=== PATIENT | male | born 1950 | race Hispanic/Latino ===

== ENCOUNTER 2018-09-04 06:39 | Outpatient (CLI) | payer MEDICARE ==
--- NOTE | 2018-09-04 08:04 | ULT ---
ULTRASOUND WITH DOPPLER DUPLEX VENOUS LOWER EXTREMITY COMPLETE: CPT: 45190 ICD-10-PCS: B54D INDICATION: Hepatitis C. 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 FINDINGS: There is prominent size of the liver. No discrete hepatic lesion is visualized. Borderline enlargemen t of the spleen, measuring approximately 13.0 cm in length. There is no acute gallbladder pathology o r ascites. Common duct is normal at 4.0 mm. No hydronephrosis involving the kidneys. Pancreas is part ially obscured, which does limit its assessment, due to persistent bowel gas. Evaluation of the abdomen otherwise grossly unremarkable by sonographic assessment. IMPRESSION: 1. No acute intra-abdominal pathology is identified. 2. Borderline hepatosplenomegaly. Correlate clinically. POS: [facility]
== END 2018-09-04 06:40 | disposition home or self-care (01) ==
LOC: BICULT 06:39
PROVIDERS: ATTEND Internal Medicine
DX: B18.2 Chronic viral hepatitis C (principal); R94.5 Abnormal results of liver function studies; D69.59 Other secondary thrombocytopenia; R16.2 Hepatomegaly with splenomegaly, not elsewhere classified
CPT/HCPCS: 76700

== ENCOUNTER 2019-06-13 08:44 | Outpatient (CLI) | payer MEDICARE ==
--- NOTE | 2019-06-13 11:05 | ULT ---
HEPATIC ULTRAOUND WITH ALBERT SCALE AND COLOR FLOW AND SPECTRAL DOPPLER IMAGING: Date: 06/13/19 HISTORY: Chronic hepatitis C. FINDINGS: There is mildly increased echogenicity of the liver without focal mass or intrahepatic ductal dilatat ion. The spleen measures 12.3 cm in length. Appendix normal. No gallstones, gallbladder wall thickeni ng, or pericholecystic fluid seen. Common duct measures 4 mm in diameter. Pancreas normal. No free fl uid seen in the upper abdomen. There is normal flow and spectral waveforms in the hepatic, portal, and splenic vasculature. IMPRESSION: Mild fatty liver. No evidence of hepatic mass or cholelithiasis. POS: [facility]
== END 2019-06-13 08:45 | disposition home or self-care (01) ==
LOC: BICULT 08:44
PROVIDERS: ATTEND Physician Assistant Medical
DX: B18.2 Chronic viral hepatitis C (principal); K76.0 Fatty (change of) liver, not elsewhere classified
CPT/HCPCS: 76705

== ENCOUNTER 2022-09-07 08:37 | Outpatient (CLI) | payer MEDICARE | END 2022-09-07 08:38 | disposition home or self-care (01) | LOC: SCSMRI 08:37 | PROVIDERS: ATTEND Physician Assistant Medical | DX: R79.89 Other specified abnormal findings of blood chemistry (principal); R16.0 Hepatomegaly, not elsewhere classified; R77.2 Abnormality of alphafetoprotein; Z86.19 Personal history of other infectious and parasitic diseases | CPT/HCPCS: 74183 ==

== ENCOUNTER 2023-01-01 21:16 | Inpatient (IN) | payer MEDICARE ==
[2023-01-01 21:29] VITALS: BMI 23.1
[2023-01-01] MEDS ORDERED: Acetaminophen 325 MG TAB PO PRN (21:30)
[2023-01-01] MEDS ORDERED: Ondansetron ODT 4 MG TAB SL PRN (21:30)
[2023-01-01] MEDS ORDERED: Ondansetron PF 4 MG/2 ML Vial IVP PRN (21:30)
[2023-01-02 00:49] LABS: Anion Gap 15 mmol/L (10-20); BUN (Urea Nitrogen) 32 mg/dL (8.4-25.7); Calc. Creatinine Clearance 96 mL/min (70-130); Calcium 8.5 mg/dL (7.8-10.44); Carbon Dioxide 16 mmol/L (23-31); Chloride 92 mmol/L (98-107); Estimated GFR 97; Glucose 92 mg/dL (80-115)
[2023-01-02 00:51] LABS: Sodium 119 mmol/L (136-145)
[2023-01-02] MEDS: Sodium Chloride 3% 100 ML IVPB SCH ×2 (01:57→02:38)
[2023-01-02] MEDS ORDERED: Dextrose 50% Abboject 50 ML SYRINGE SLOW IVP PRN (03:56)
[2023-01-02] MEDS ORDERED: Dextrose 5% in Water 1,000 ML IV PRN (03:56)
[2023-01-02] MEDS ORDERED: HumaLOG 300 UNITS/3 ML VIAL SC PRN ×2 (03:56)
[2023-01-02] MEDS ORDERED: Insulin Glargine 30 UNITS/0.3 ML VIAL SC SCH ×2 (04:15→21:00)
[2023-01-02 04:35] LABS: ALT (SGPT) 31 U/L (8-55); AST (SGOT) 154 U/L (5-34); Albumin 3.4 g/dL (3.4-4.8); Alkaline Phosphatase 134 U/L (40-110); Anion Gap 14 mmol/L (10-20); BUN (Urea Nitrogen) 29 mg/dL (8.4-25.7); Bilirubin, Total 4.5 mg/dL (0.2-1.2); Calc. Creatinine Clearance 106 mL/min (70-130); Calcium 8.4 mg/dL (7.8-10.44); Carbon Dioxide 16 mmol/L (23-31); Chloride 94 mmol/L (98-107); Estimated GFR 100; Globulin 3.7 g/dL (2.4-3.5); Glucose 82 mg/dL (80-115); Protein, Total 7.1 g/dL (5.8-8.1); Sodium 120 mmol/L (136-145)
[2023-01-02] MEDS ORDERED: Electrolyte Replacement Protocol 1 EACH FS PRN (05:14)
[2023-01-02 08:44] LABS: Anion Gap 14 mmol/L (10-20); BUN (Urea Nitrogen) 31 mg/dL (8.4-25.7); Calc. Creatinine Clearance 99 mL/min (70-130); Calcium 8.5 mg/dL (7.8-10.44); Carbon Dioxide 18 mmol/L (23-31); Chloride 92 mmol/L (98-107); Estimated GFR 97; Glucose 81 mg/dL (80-115); Potassium 3.9 mmol/L (3.5-5.1); Sodium 120 mmol/L (136-145)
[2023-01-02] MEDS ORDERED: Amlodipine 10 MG TAB PO SCH ×2 (09:00)
[2023-01-02] MEDS: Sodium Chloride 1 GM TAB PO SCH ×3 (09:34→20:31)
[2023-01-02] MEDS: Megestrol Acetate 800 MG/20 ML UDCUP PO SCH (09:37)
[2023-01-02] MEDS ORDERED: Prochlorperazine Maleate 5 MG TAB PO PRN (11:35)
[2023-01-02] MEDS ORDERED: NIFEdipine XL 30 MG TAB PO SCH (15:30)
[2023-01-02] MEDS ORDERED: Sodium Bicarbonate Tab 325 MG TAB PO SCH (15:30)
[2023-01-02 16:11] LABS: Anion Gap 13 mmol/L (10-20); BUN (Urea Nitrogen) 27 mg/dL (8.4-25.7); Calc. Creatinine Clearance 99 mL/min (70-130); Calcium 8.3 mg/dL (7.8-10.44); Carbon Dioxide 17 mmol/L (23-31); Chloride 94 mmol/L (98-107); Estimated GFR 97; Glucose 112 mg/dL (80-115); Potassium 3.9 mmol/L (3.5-5.1); Sodium 120 mmol/L (136-145)
[2023-01-02 17:08] LABS: Bacteria/HPF None Seen HPF (None Seen); Bilirubin Negative (Negative); Blood, Urine Negative (Negative); Clarity Clear (Clear); Glucose, Urine (Dipstick) Normal (Negative); Ketone, Urine 10 mg/dL (Negative); Leukocyte Negative Leu/uL (Negative); Nitrite Negative (Negative); Protein, Urine (Dipstick) 70 mg/dL (Neg-Trace); RBC/HPF 0-3 HPF (0-3); Specific Gravity, Urine 1.024 (1.002-1.036); Squamous Epithelial None Seen HPF (0-3); WBC/HPF 0-3 HPF (0-3); pH, Urine 6.5 (5.0-9.0)
[2023-01-02] MEDS: Sodium Bicarbonate Tab 325 MG TAB PO SCH (20:31)
[2023-01-02] MEDS: Nadolol 40 MG TAB PO SCH (20:31)
[2023-01-02 20:59] LABS: Anion Gap 15 mmol/L (10-20); BUN (Urea Nitrogen) 28 mg/dL (8.4-25.7); Calc. Creatinine Clearance 100 mL/min (70-130); Calcium 8.3 mg/dL (7.8-10.44); Carbon Dioxide 17 mmol/L (23-31); Chloride 94 mmol/L (98-107); Estimated GFR 98; Glucose 112 mg/dL (80-115); Potassium 3.9 mmol/L (3.5-5.1); Sodium 122 mmol/L (136-145)
[2023-01-02] MEDS ORDERED: Mirtazapine 15 MG Soltab PO SCH ×2 (21:00)
[2023-01-02] MEDS ORDERED: Non-Formulary Item 1 EACH (Nadolol [Nadolol] 20 MG Tablet) PO SCH (21:00)
[2023-01-03 00:33] LABS: Anion Gap 9 mmol/L (10-20); BUN (Urea Nitrogen) 29 mg/dL (8.4-25.7); Calc. Creatinine Clearance 99 mL/min (70-130); Calcium 8.5 mg/dL (7.8-10.44); Carbon Dioxide 18 mmol/L (23-31); Chloride 97 mmol/L (98-107); Estimated GFR 97; Glucose 114 mg/dL (80-115); Sodium 120 mmol/L (136-145)
[2023-01-03 05:55] LABS: #Basophils 0.1 thou/uL (0.0-0.2); #Lymphocytes 0.9 thou/uL (1.20-3.40); #Monocytes 0.9 thou/uL (0.11-0.59); #Neutrophils 7.4 thou/uL (1.40-6.50); %Basophils 1.2 % (0.0-1.0); %Eosinophils 0.4 % (0.0-10.0); %Lymphocytes 9.4 % (21.0-51.0); %Monocytes 9.9 % (0.0-10.0); %Neutrophils 79.1 % (42.0-75.0); Hemoglobin 15.2 g/dL (14.0-18.0); Mean Corpuscular HGB CONC 32.7 g/dL (32.0-36.0); Mean Corpuscular Hemoglobin 27.4 pg (27.0-31.0); Mean Corpuscular Volume 83.9 fl (78.0-98.0); Mean Platelet Volume 8.8 fL (7.4-10.4); Platelet Count 381 10x3/uL (130-400); Red Blood Cell (RBC) Count 5.53 mill/uL (4.70-6.10); White Blood Cell (WBC) Count 9.4 10x3/uL (4.8-10.8)
[2023-01-03 06:12] LABS: Anion Gap 16 mmol/L (10-20); BUN (Urea Nitrogen) 26 mg/dL (8.4-25.7); Calc. Creatinine Clearance 100 mL/min (70-130); Calcium 8.4 mg/dL (7.8-10.44); Carbon Dioxide 17 mmol/L (23-31); Chloride 94 mmol/L (98-107); Estimated GFR 98; Glucose 114 mg/dL (80-115); Magnesium 2.1 mg/dL (1.6-2.6); Potassium 3.8 mmol/L (3.5-5.1); Sodium 123 mmol/L (136-145)
[2023-01-03] MEDS: NIFEdipine XL 60 MG TAB PO SCH (08:22)
[2023-01-03] MEDS: Sodium Bicarbonate Tab 325 MG TAB PO SCH ×3 (08:22→20:38)
[2023-01-03] MEDS: Megestrol Acetate 800 MG/20 ML UDCUP PO SCH (08:22)
[2023-01-03] MEDS: Sodium Chloride 1 GM TAB PO SCH ×3 (08:23→20:38)
[2023-01-03 12:06] LABS: Campy jejuni + coli by PCR Negative (Negative); STEC Shiga Toxin 1+2 Negative (Negative); Salmonella spp. by PCR Negative (Negative); Shigella spp + EIEC by PCR Negative (Negative)
[2023-01-03] MEDS: Nadolol 40 MG TAB PO SCH (20:38)
[2023-01-04 06:10] LABS: #Basophils 0.1 thou/uL (0.0-0.2); #Lymphocytes 0.9 thou/uL (1.20-3.40); #Monocytes 0.7 thou/uL (0.11-0.59); #Neutrophils 7.4 thou/uL (1.40-6.50); %Basophils 1.6 % (0.0-1.0); %Eosinophils 0.2 % (0.0-10.0); %Lymphocytes 9.7 % (21.0-51.0); %Neutrophils 80.4 % (42.0-75.0); Mean Corpuscular HGB CONC 32.8 g/dL (32.0-36.0); Mean Corpuscular Hemoglobin 27.6 pg (27.0-31.0); Mean Corpuscular Volume 84.1 fl (78.0-98.0); Mean Platelet Volume 8.7 fL (7.4-10.4); Platelet Count 387 10x3/uL (130-400); RBC Distribution Width 20.1 % (11.5-14.5); Red Blood Cell (RBC) Count 5.43 mill/uL (4.70-6.10); White Blood Cell (WBC) Count 9.2 10x3/uL (4.8-10.8)
[2023-01-04 06:36] LABS: Anion Gap 13 mmol/L (10-20); BUN (Urea Nitrogen) 33 mg/dL (8.4-25.7); Calc. Creatinine Clearance 97 mL/min (70-130); Calcium 8.7 mg/dL (7.8-10.44); Carbon Dioxide 19 mmol/L (23-31); Chloride 94 mmol/L (98-107); Estimated GFR 97; Glucose 118 mg/dL (80-115); Magnesium 2.1 mg/dL (1.6-2.6); Potassium 3.8 mmol/L (3.5-5.1); Sodium 122 mmol/L (136-145)
[2023-01-04] MEDS ORDERED: FLU VACC QS2022-23(65YR UP)/PF 240 MCG/0.7 ML SYRINGE IM ONE (09:00)
[2023-01-04] MEDS: Sodium Chloride 1 GM TAB PO SCH ×3 (09:10→21:57)
[2023-01-04] MEDS: Megestrol Acetate 800 MG/20 ML UDCUP PO SCH ×2 (09:10→09:30)
[2023-01-04] MEDS: NIFEdipine XL 60 MG TAB PO SCH (09:10)
[2023-01-04] MEDS: Sodium Bicarbonate Tab 325 MG TAB PO SCH ×3 (09:10→21:57)
[2023-01-04] MEDS: Nadolol 40 MG TAB PO SCH ×2 (21:30→21:57)
[2023-01-04] MEDS: Ondansetron PF 4 MG/2 ML Vial IVP PRN (21:36)
[2023-01-05] MEDS: Ondansetron PF 4 MG/2 ML Vial IVP PRN ×2 (02:55→19:54)
[2023-01-05 06:19] LABS: Anion Gap 10 mmol/L (10-20); BUN (Urea Nitrogen) 29 mg/dL (8.4-25.7); Calc. Creatinine Clearance 118 mL/min (70-130); Calcium 8.4 mg/dL (7.8-10.44); Carbon Dioxide 21 mmol/L (23-31); Chloride 96 mmol/L (98-107); Estimated GFR 103; Glucose 105 mg/dL (80-115); Potassium 3.8 mmol/L (3.5-5.1); Sodium 123 mmol/L (136-145)
[2023-01-05 06:29] LABS: Band 7 % (5-11); Eosinophils 1 % (0-10); Hemoglobin 14.9 g/dL (14.0-18.0); Lymphocytes 8 % (21-51); MDiff Complete? YES; Mean Corpuscular HGB CONC 32.5 g/dL (32.0-36.0); Mean Corpuscular Hemoglobin 27.5 pg (27.0-31.0); Mean Corpuscular Volume 84.6 fl (78.0-98.0); Mean Platelet Volume 8.2 fL (7.4-10.4); Monocytes 2 % (0-10); Neutrophil 82 % (42-75); Platelet Count 368 10x3/uL (130-400); Platelet Morphology Comment Appears Adequate; RBC Distribution Width 20.3 % (11.5-14.5); RBC Morphology Normal; White Blood Cell (WBC) Count 9.4 10x3/uL (4.8-10.8)
[2023-01-05] MEDS ORDERED: Magnesium 2 GM/50 ML(in water) 2 GM in Premix Bag 1 BAG IVPB SCH (08:00)
[2023-01-05] MEDS: Megestrol Acetate 800 MG/20 ML UDCUP PO SCH (08:14)
[2023-01-05] MEDS: NIFEdipine XL 60 MG TAB PO SCH (08:14)
[2023-01-05] MEDS: Sodium Chloride 1 GM TAB PO SCH ×3 (08:15→20:01)
[2023-01-05] MEDS: Sodium Bicarbonate Tab 325 MG TAB PO SCH ×3 (08:15→20:00)
[2023-01-05] MEDS: Nadolol 40 MG TAB PO SCH (20:00)
[2023-01-06 05:41] LABS: #Eosinphils 0.1 thou/uL (0.0-0.7); #Lymphocytes 0.8 thou/uL (1.20-3.40); #Monocytes 0.6 thou/uL (0.11-0.59); #Neutrophils 6.9 thou/uL (1.40-6.50); %Basophils 0.3 % (0.0-1.0); %Eosinophils 0.8 % (0.0-10.0); %Lymphocytes 9.2 % (21.0-51.0); %Monocytes 7.4 % (0.0-10.0); %Neutrophils 82.4 % (42.0-75.0); Hemoglobin 15.1 g/dL (14.0-18.0); INR-International Normal Ratio 1.3; Mean Corpuscular HGB CONC 31.4 g/dL (32.0-36.0); Mean Corpuscular Hemoglobin 26.6 pg (27.0-31.0); Mean Corpuscular Volume 84.7 fl (78.0-98.0); Mean Platelet Volume 8.9 fL (7.4-10.4); Platelet Count 307 10x3/uL (130-400); Prothrombin Time 16.8 sec (12.0-14.7); RBC Distribution Width 20.5 % (11.5-14.5); Red Blood Cell (RBC) Count 5.67 mill/uL (4.70-6.10); White Blood Cell (WBC) Count 8.3 10x3/uL (4.8-10.8)
[2023-01-06 05:50] LABS: ALT (SGPT) 33 U/L (8-55); AST (SGOT) 161 U/L (5-34); Albumin 3.3 g/dL (3.4-4.8); Alkaline Phosphatase 143 U/L (40-110); Anion Gap 14 mmol/L (10-20); BUN (Urea Nitrogen) 38 mg/dL (8.4-25.7); Calc. Creatinine Clearance 89 mL/min (70-130); Calcium 8.7 mg/dL (7.8-10.44); Carbon Dioxide 19 mmol/L (23-31); Chloride 95 mmol/L (98-107); Estimated GFR 95; Globulin 3.8 g/dL (2.4-3.5); Glucose 74 mg/dL (80-115); Magnesium 2.6 mg/dL (1.6-2.6); Potassium 3.8 mmol/L (3.5-5.1); Protein, Total 7.1 g/dL (5.8-8.1); Sodium 124 mmol/L (136-145)
[2023-01-06] MEDS ORDERED: Lorazepam 2 MG/ML VIAL SLOW IVP SCH (07:45)
[2023-01-06] MEDS ORDERED: hydrALAZINE 20 MG/ML VIAL SLOW IVP SCH (08:00)
[2023-01-06] MEDS: Ondansetron PF 4 MG/2 ML Vial IVP PRN (08:41)
[2023-01-06] MEDS: Megestrol Acetate 800 MG/20 ML UDCUP PO SCH (09:34)
[2023-01-06] MEDS: Sodium Bicarbonate Tab 325 MG TAB PO SCH ×3 (09:34→20:59)
[2023-01-06] MEDS: Sodium Chloride 1 GM TAB PO SCH ×3 (09:34→20:59)
[2023-01-06] MEDS: NIFEdipine XL 60 MG TAB PO SCH (09:34)
[2023-01-06] MEDS ORDERED: hydrALAZINE 20 MG/ML VIAL SLOW IVP PRN (18:48)
[2023-01-06] MEDS ORDERED: Sodium Bicarbonate 100 MEQ in Sodium Chloride 0.45% 1,000 ML IV SCH (19:45)
[2023-01-06] MEDS: Nadolol 40 MG TAB PO SCH ×2 (20:58→21:03)
[2023-01-07 00:06] LABS: Anion Gap 14 mmol/L (10-20); BUN (Urea Nitrogen) 46 mg/dL (8.4-25.7); Calc. Creatinine Clearance 73 mL/min (70-130); Calcium 8.7 mg/dL (7.8-10.44); Carbon Dioxide 18 mmol/L (23-31); Chloride 96 mmol/L (98-107); Estimated GFR 81; Glucose 103 mg/dL (80-115); Potassium 4.1 mmol/L (3.5-5.1); Sodium 124 mmol/L (136-145)
[2023-01-07 05:19] LABS: ALT (SGPT) 35 U/L (8-55); AST (SGOT) 147 U/L (5-34); Albumin 3.4 g/dL (3.4-4.8); Alkaline Phosphatase 157 U/L (40-110); Anion Gap 15 mmol/L (10-20); BUN (Urea Nitrogen) 46 mg/dL (8.4-25.7); Bilirubin, Total 3.9 mg/dL (0.2-1.2); Calc. Creatinine Clearance 83 mL/min (70-130); Calcium 8.6 mg/dL (7.8-10.44); Carbon Dioxide 18 mmol/L (23-31); Chloride 96 mmol/L (98-107); Estimated GFR 93; Globulin 3.8 g/dL (2.4-3.5); Glucose 94 mg/dL (80-115); Magnesium 2.4 mg/dL (1.6-2.6); Protein, Total 7.2 g/dL (5.8-8.1); Sodium 125 mmol/L (136-145)
[2023-01-07 05:20] LABS: #Lymphocytes 0.5 thou/uL (1.20-3.40); #Monocytes 0.6 thou/uL (0.11-0.59); %Basophils 0.1 % (0.0-1.0); %Eosinophils 0.6 % (0.0-10.0); %Lymphocytes 6.3 % (21.0-51.0); %Monocytes 6.9 % (0.0-10.0); %Neutrophils 86.2 % (42.0-75.0); Hemoglobin 15.8 g/dL (14.0-18.0); Mean Corpuscular HGB CONC 31.5 g/dL (32.0-36.0); Mean Corpuscular Hemoglobin 26.9 pg (27.0-31.0); Mean Corpuscular Volume 85.2 fl (78.0-98.0); Mean Platelet Volume 8.4 fL (7.4-10.4); Platelet Count 287 10x3/uL (130-400); RBC Distribution Width 20.4 % (11.5-14.5); White Blood Cell (WBC) Count 8.1 10x3/uL (4.8-10.8)
[2023-01-07] MEDS: NIFEdipine XL 60 MG TAB PO SCH ×2 (08:53→08:55)
[2023-01-07] MEDS: Megestrol Acetate 800 MG/20 ML UDCUP PO SCH (08:55)
[2023-01-07] MEDS: Sodium Bicarbonate Tab 325 MG TAB PO SCH ×3 (08:56→21:33)
[2023-01-07] MEDS: Sodium Chloride 1 GM TAB PO SCH ×3 (08:56→21:33)
[2023-01-07] MEDS ORDERED: Loperamide HCl 2 MG CAP PO SCH (09:18)
[2023-01-07] MEDS ORDERED: Sodium Bicarbonate 2.5 MEQ/5 ML VIAL ONE (13:39)
[2023-01-07] MEDS ORDERED: Lidocaine 1% PF 5 ML VIAL ONE (13:39)
[2023-01-07] MEDS: Acetaminophen 650 MG Suppository PR PRN (21:06)
[2023-01-07 21:20] LABS: RBC Count-Automated (BF) 2342 /cu.mm
[2023-01-07] MEDS: Nadolol 40 MG TAB PO SCH (21:33)
[2023-01-07 21:57] LABS: WBC/Nucleated-Auto (BF) 0 /cu.mm
[2023-01-07 21:58] LABS: BF Color Yellow; Body Fluid Source Ascites Body Fluid; Clarity Clear (Clear); Tube # EDTA
[2023-01-08 05:28] LABS: #Basophils 0.1 thou/uL (0.0-0.2); #Lymphocytes 0.8 thou/uL (1.20-3.40); #Monocytes 0.6 thou/uL (0.11-0.59); #Neutrophils 7.6 thou/uL (1.40-6.50); %Eosinophils 0.5 % (0.0-10.0); %Lymphocytes 8.5 % (21.0-51.0); %Monocytes 6.7 % (0.0-10.0); %Neutrophils 83.2 % (42.0-75.0); Mean Corpuscular HGB CONC 31.2 g/dL (32.0-36.0); Mean Corpuscular Hemoglobin 26.8 pg (27.0-31.0); Mean Corpuscular Volume 85.8 fl (78.0-98.0); Mean Platelet Volume 8.9 fL (7.4-10.4); Platelet Count 266 10x3/uL (130-400); RBC Distribution Width 20.6 % (11.5-14.5); Red Blood Cell (RBC) Count 5.97 mill/uL (4.70-6.10); White Blood Cell (WBC) Count 9.1 10x3/uL (4.8-10.8)
[2023-01-08 05:48] LABS: Anion Gap 16 mmol/L (10-20); BUN (Urea Nitrogen) 58 mg/dL (8.4-25.7); Calc. Creatinine Clearance 57 mL/min (70-130); Calcium 8.5 mg/dL (7.8-10.44); Carbon Dioxide 19 mmol/L (23-31); Chloride 96 mmol/L (98-107); Estimated GFR 60; Glucose 77 mg/dL (80-115); Magnesium 2.5 mg/dL (1.6-2.6); Potassium 4.1 mmol/L (3.5-5.1); Sodium 127 mmol/L (136-145)
[2023-01-08] MEDS: Pantoprazole 40 MG VIAL IVP SCH (09:12)
[2023-01-08] MEDS: Sodium Chloride 1 GM TAB PO SCH ×3 (09:19→20:25)
[2023-01-08] MEDS: Megestrol Acetate 800 MG/20 ML UDCUP PO SCH (09:19)
[2023-01-08] MEDS: Sodium Bicarbonate Tab 325 MG TAB PO SCH ×3 (09:19→20:34)
[2023-01-08] MEDS: NIFEdipine XL 60 MG TAB PO SCH (09:19)
[2023-01-08] MEDS: Nadolol 40 MG TAB PO SCH (20:24)
[2023-01-08] MEDS ORDERED: Guaifenesin DM 100-10/5 ML UDCUP PO PRN (20:54)
[2023-01-08] MEDS: Acetaminophen 650 MG Suppository PR PRN (22:17)
[2023-01-09] MEDS: Metoclopramide HCl 10 MG/2 ML VIAL IVP PRN ×2 (00:42→15:28)
[2023-01-09 06:27] LABS: Hemoglobin 16.4 g/dL (14.0-18.0); Mean Corpuscular HGB CONC 31.2 g/dL (32.0-36.0); Mean Corpuscular Hemoglobin 26.7 pg (27.0-31.0); Mean Corpuscular Volume 85.6 fl (78.0-98.0); Mean Platelet Volume 8.7 fL (7.4-10.4); Platelet Count 303 10x3/uL (130-400); RBC Distribution Width 20.4 % (11.5-14.5); Red Blood Cell (RBC) Count 6.13 mill/uL (4.70-6.10); White Blood Cell (WBC) Count 10.3 10x3/uL (4.8-10.8)
[2023-01-09 06:54] LABS: #Lymphocytes 0.7 thou/uL (1.20-3.40); #Monocytes 0.4 thou/uL (0.11-0.59); #Neutrophils 9.1 thou/uL (1.40-6.50); %Basophils 0.1 % (0.0-1.0); %Eosinophils 0.1 % (0.0-10.0); %Lymphocytes 6.9 % (21.0-51.0); %Monocytes 3.8 % (0.0-10.0); %Neutrophils 89.1 % (42.0-75.0)
[2023-01-09 06:57] LABS: Anion Gap 21 mmol/L (10-20); BUN (Urea Nitrogen) 85 mg/dL (8.4-25.7); Calc. Creatinine Clearance 35 mL/min (70-130); Calcium 8.8 mg/dL (7.8-10.44); Carbon Dioxide 16 mmol/L (23-31); Chloride 97 mmol/L (98-107); Estimated GFR 33; Glucose 157 mg/dL (80-115); Potassium 4.5 mmol/L (3.5-5.1); Sodium 129 mmol/L (136-145)
[2023-01-09] MEDS: Megestrol Acetate 800 MG/20 ML UDCUP PO SCH (08:55)
[2023-01-09] MEDS: Sodium Bicarbonate Tab 325 MG TAB PO SCH ×3 (08:57→20:32)
[2023-01-09] MEDS: NIFEdipine XL 60 MG TAB PO SCH (08:57)
[2023-01-09] MEDS: Pantoprazole 40 MG VIAL IVP SCH (08:58)
[2023-01-09] MEDS: Sodium Chloride 1 GM TAB PO SCH ×3 (08:58→20:31)
[2023-01-09] MEDS: Chloraseptic Spray 180 ml Bottle PO PRN ×2 (15:34→20:30)
[2023-01-09] MEDS: Nadolol 40 MG TAB PO SCH (20:31)
[2023-01-10] MEDS ORDERED: Loperamide HCl 2 MG CAP PO PRN (01:48)
[2023-01-10] MEDS ORDERED: Morphine 2 MG/ML VIAL SLOW IVP PRN (01:50)
[2023-01-10] MEDS ORDERED: Morphine 4 MG/ML VIAL SLOW IVP SCH (02:15)
[2023-01-10] MEDS: Acetaminophen 650 MG Suppository PR PRN (02:19)
[2023-01-10 05:44] LABS: Hemoglobin 16.4 g/dL (14.0-18.0); Mean Corpuscular HGB CONC 31.6 g/dL (32.0-36.0); Mean Corpuscular Hemoglobin 26.9 pg (27.0-31.0); Mean Corpuscular Volume 85.2 fl (78.0-98.0); Platelet Count 294 10x3/uL (130-400); RBC Distribution Width 20.7 % (11.5-14.5); Red Blood Cell (RBC) Count 6.09 mill/uL (4.70-6.10)
[2023-01-10 06:10] LABS: ALT (SGPT) 40 U/L (8-55); AST (SGOT) 144 U/L (5-34); Albumin 3.5 g/dL (3.4-4.8); Alkaline Phosphatase 147 U/L (40-110); Anion Gap 16 mmol/L (10-20); BUN (Urea Nitrogen) 95 mg/dL (8.4-25.7); Bilirubin, Total 3.3 mg/dL (0.2-1.2); Calc. Creatinine Clearance 38 mL/min (70-130); Calcium 8.6 mg/dL (7.8-10.44); Carbon Dioxide 18 mmol/L (23-31); Chloride 100 mmol/L (98-107); Estimated GFR 37; Glucose 164 mg/dL (80-115); Magnesium 2.9 mg/dL (1.6-2.6); Protein, Total 7.5 g/dL (5.8-8.1); Sodium 130 mmol/L (136-145)
[2023-01-10] MEDS: Metoclopramide HCl 10 MG/2 ML VIAL IVP PRN ×3 (07:10→22:40)
[2023-01-10 08:21] LABS: MDiff Complete? YES
[2023-01-10 08:22] LABS: Band 10 % (5-11); Lymphocytes 7 % (21-51); Monocytes 2 % (0-10); Neutrophil 81 % (42-75); Platelet Morphology Comment Appears Adequate; RBC Morphology Normal
[2023-01-10] MEDS ORDERED: Cefepime 2 GM in Sodium Chloride 0.9% 100 ML IVPB SCH (09:00)
[2023-01-10] MEDS: NIFEdipine XL 60 MG TAB PO SCH (09:14)
[2023-01-10] MEDS: Megestrol Acetate 800 MG/20 ML UDCUP PO SCH (09:14)
[2023-01-10] MEDS: Sodium Bicarbonate Tab 325 MG TAB PO SCH ×3 (09:14→22:35)
[2023-01-10] MEDS: Pantoprazole 40 MG VIAL IVP SCH (09:14)
[2023-01-10] MEDS: Sodium Chloride 1 GM TAB PO SCH ×3 (09:14→22:35)
[2023-01-10] MEDS ORDERED: Piperacillin/Tazobactam 3.375 GM in Sodium Chloride 0.9% 100 ML IVPB SCH (11:00)
[2023-01-10] MEDS: Piperacillin/Tazobactam 3.375 GM in Sodium Chloride 0.9% 100 ML IVPB SCH ×2 (15:48→23:54)
[2023-01-10 16:48] LABS: Hemoglobin 16.9 g/dL (14.0-18.0)
[2023-01-10] MEDS: Doxycycline 100 MG in Sodium Chloride 0.9% 100 ML IVPB SCH (22:32)
[2023-01-10] MEDS: Nadolol 40 MG TAB PO SCH (22:35)
[2023-01-11 00:19] VITALS: TEMP 97.6
[2023-01-11 01:39] LABS: Bacteria/HPF None Seen HPF (None Seen); Bilirubin Negative (Negative); Blood, Urine Trace (Negative); Clarity Extra Turbid (Clear); Glucose, Urine (Dipstick) Normal (Negative); Ketone, Urine Trace mg/dL (Negative); Leukocyte Negative Leu/uL (Negative); Nitrite Negative (Negative); Protein, Urine (Dipstick) 70 mg/dL (Neg-Trace); RBC/HPF 0-3 HPF (0-3); Specific Gravity, Urine 1.029 (1.002-1.036); Squamous Epithelial None Seen HPF (0-3); Urobilinogen Normal mg/dL (Less than 2); pH, Urine 5.5 (5.0-9.0)
[2023-01-11] MEDS ORDERED: Saccharomyces boulardii 250 MG CAP PO SCH (03:45)
[2023-01-11 05:45] LABS: #Lymphocytes 0.7 thou/uL (1.20-3.40); #Monocytes 0.7 thou/uL (0.11-0.59); #Neutrophils 12.4 thou/uL (1.40-6.50); %Basophils 0.1 % (0.0-1.0); %Eosinophils 0.2 % (0.0-10.0); %Lymphocytes 5.1 % (21.0-51.0); %Monocytes 5.1 % (0.0-10.0); %Neutrophils 89.4 % (42.0-75.0); Mean Corpuscular HGB CONC 30.7 g/dL (32.0-36.0); Mean Corpuscular Hemoglobin 27.2 pg (27.0-31.0); Mean Corpuscular Volume 88.5 fl (78.0-98.0); Mean Platelet Volume 9.7 fL (7.4-10.4); Platelet Count 224 10x3/uL (130-400); RBC Distribution Width 21.2 % (11.5-14.5); Red Blood Cell (RBC) Count 6.26 mill/uL (4.70-6.10); White Blood Cell (WBC) Count 13.9 10x3/uL (4.8-10.8)
[2023-01-11] MEDS: Doxycycline 100 MG in Sodium Chloride 0.9% 100 ML IVPB SCH (07:24)
[2023-01-11] MEDS: Pantoprazole 40 MG VIAL IVP SCH (07:24)
[2023-01-11] MEDS: NIFEdipine XL 60 MG TAB PO SCH (07:48)
[2023-01-11] MEDS: Megestrol Acetate 800 MG/20 ML UDCUP PO SCH (07:48)
[2023-01-11] MEDS: Sodium Bicarbonate Tab 325 MG TAB PO SCH (07:49)
[2023-01-11] MEDS: Sodium Chloride 1 GM TAB PO SCH (07:49)
[2023-01-11 08:38] LABS: Albumin 3.2 g/dL (3.4-4.8)
[2023-01-11 08:39] LABS: Calcium 8.9 mg/dL (7.8-10.44); Chloride 104 mmol/L (98-107); Potassium 4.3 mmol/L (3.5-5.1); Sodium 137 mmol/L (136-145)
[2023-01-11 08:40] LABS: Glucose 108 mg/dL (80-115)
[2023-01-11 08:41] LABS: Protein, Total 7.2 g/dL (5.8-8.1)
[2023-01-11 08:42] LABS: Anion Gap 21 mmol/L (10-20); Bilirubin, Total 3.8 mg/dL (0.2-1.2); Carbon Dioxide 16 mmol/L (23-31)
[2023-01-11 08:43] LABS: Alkaline Phosphatase 131 U/L (40-110)
[2023-01-11 08:44] LABS: BUN (Urea Nitrogen) 103 mg/dL (8.4-25.7); Calc. Creatinine Clearance 30 mL/min (70-130); Estimated GFR 28
[2023-01-11 08:45] LABS: AST (SGOT) 143 U/L (5-34)
[2023-01-11 08:46] LABS: ALT (SGPT) 40 U/L (8-55)
[2023-01-11] MEDS: Piperacillin/Tazobactam 3.375 GM in Sodium Chloride 0.9% 100 ML IVPB SCH (08:49)
[2023-01-11 09:18] VITALS: BP 97/70
== END 2023-01-11 14:53 | disposition hospice, home (50) | DRG 643 ==
LOC: MSONC 21:16 → CCU 01-02 01:47 → SURG A 01-02 19:12 → MSONC 01-03 23:35
PROVIDERS: ADMIT Student in an Organized Health Care Education/Training Program; ATTEND Internal Medicine
PROC: 0W9G3ZZ Drainage of Peritoneal Cavity, Percutaneous Approach (ICD-10-PCS; 2023-01-07)
PROC: 0DH67UZ Insertion of Feeding Device into Stomach, Via Natural or Artificial Opening (ICD-10-PCS; principal; 2023-01-08)
PROC: 3E0G76Z Introduction of Nutritional Substance into Upper GI, Via Natural or Artificial Opening (ICD-10-PCS; 2023-01-08)
DX: E22.2 Syndrome of inappropriate secretion of antidiuretic hormone (principal); E43 Unspecified severe protein-calorie malnutrition; G93.41 Metabolic encephalopathy; J69.0 Pneumonitis due to inhalation of food and vomit; I81 Portal vein thrombosis; C22.0 Liver cell carcinoma; E87.20 Acidosis, unspecified; N17.9 Acute kidney failure, unspecified; R18.8 Other ascites; K92.1 Melena; R64 Cachexia; J90 Pleural effusion, not elsewhere classified; Z51.5 Encounter for palliative care; I10 Essential (primary) hypertension; E80.6 Other disorders of bilirubin metabolism; R19.7 Diarrhea, unspecified; R53.1 Weakness; E86.9 Volume depletion, unspecified; R13.10 Dysphagia, unspecified; B19.20 Unspecified viral hepatitis C without hepatic coma; Z80.3 Family history of malignant neoplasm of breast; Z79.899 Other long term (current) drug therapy; Z68.23 Body mass index [BMI] 23.0-23.9, adult; Z20.822 Contact with and (suspected) exposure to COVID-19; E86.0 Dehydration; T45.1X5A Adverse effect of antineoplastic and immunosuppressive drugs, initial encounter
CPT/HCPCS: 36415; 36416; 49083; 70450; 71045; 71046; 74018; 74183; 74230; 80048; 80053; 81001; 82140; 82274; 83735; 83930; 83935; 84100; 84145; 85025; 85610; 87070; 87081; 87205; 87324; 87449; 87505; 87811; 89051; 93306; C9113; J0360; J0692; J2060; J2405; J2543; J2765; J3475; J3490; J7131; U0003; U0005